=== PATIENT | female | born 1965 | race African-American/Black ===

== ENCOUNTER 2017-10-26 09:30 | Day surgery (SDC) | payer OTHER ==
[~2017-10-26] VITALS: Ht 167.6 cm; Wt 111.1 kg
[2017-10-26] MEDS ORDERED: KETOROLAC 30 MG/ML VIAL ONE (12:45)
[2017-10-26] MEDS ORDERED: LIDOCAINE 2% 100 MG/5 ML UJET TP ONE (12:45)
== END 2017-10-26 12:30 | disposition home or self-care (01) ==
LOC: MDS 09:30 → MMU 09:30 → MDS 12:30
PROVIDERS: ATTEND Internal Medicine Gastroenterology
DX: Z12.11 Encounter for screening for malignant neoplasm of colon (principal); I10 Essential (primary) hypertension; E11.9 Type 2 diabetes mellitus without complications; K63.89 Other specified diseases of intestine; F41.9 Anxiety disorder, unspecified; Z88.1 Allergy status to other antibiotic agents; Z98.51 Tubal ligation status; Z90.49 Acquired absence of other specified parts of digestive tract
CPT/HCPCS: 45378; 82948; J1885; J7030